=== PATIENT | female | born 1935 | race Caucasian/White ===

== ENCOUNTER 2018-02-09 09:32 | Day surgery (SDC) | payer OTHER, MEDICARE ==
[~2018-02-09] VITALS: Ht 167.6 cm; Wt 59.0 kg
[~2018-02-09 09:32] MED LIST: ARTIFICIAL TEA3.5 G1 BOTH EYES; BENADRYL ALLERG25 MG PO; CALCIUM ACETAT667 MG PO; CLARITIN10 MG PO; COLACE100 MG PO; COMBIGAN O20 DROP/5 LEFT EYE; ERYTHROMYC1 APPLICAT BOTH EYES; FISH OIL 1,2001 EAC4 PO; FOSAMAX70 MG PO; FUROSEMIDE20 MG PO; GLUCOTROL XL2.5 MG PO; HUMALOG100 UNIT/2 SC; LASIX40 MG PO; LOVASTATIN40 MG PO; LUMIGAN 0.50 DROP/22 BOTH EYES; MIRALAX17 GM PO; NABI650T PO; PROAMATINE5 MG PO; RENVELA800 MG PO; SENNA LAXATIVE25 MG PO; SIMBRINZA 1%-0.28 ML RIGHT EYE; SYSTANE BALANCE10 ML BOTH EYES; TYLENOL ARTHRI650 MG PO; VITAMIN B-12 51 EACH SL; VITAMIN C WIT1000 MG PO; WELCHOL625 MG PO; ZESTRIL2.5 MG PO
[2018-02-09 11:00] VITALS: BP 147/79
[2018-02-09 11:04] LABS: HEMATOCRIT 34.5 % (36.0-46.0); HEMOGLOBIN 11.1 G/DL (11.9-15.5); MCH 31.3 PG (29.0-34.0); MCHC 32.2 G/DL (30.0-36.0); MCV 97.2 FL (83-99); PLATELET COUNT 141 K/uL (156-360); RBC DIS.WIDTH-CV 13.6 % (11.8-14.6); RBC DIS.WIDTH-SD 48.6 % (39-53); RED BLOOD COUNT 3.55 M/uL (3.80-5.20); WHITE BLOOD COUNT 5.6 K/uL (4.1-10.2)
[2018-02-09 11:12] LABS: CHLORIDE 100 MEQ/L (99-109); POTASSIUM 4.7 MEQ/L (3.7-5.4); SODIUM 135 MEQ/L (136-147)
[2018-02-09 11:17] LABS: GLUCOSE 84 mg/dL (70-99)
[2018-02-09] MEDS ORDERED: NORCO 7.5/321 TABLET PO (15:17)
[2018-02-09 16:40] VITALS: BP 129/61
[2018-02-09 17:18] VITALS: BP 125/59
== END 2018-02-09 17:25 | disposition home or self-care (01) ==
LOC: SDC 09:32
PROVIDERS: Surgery
DX: I12.0 Hypertensive chronic kidney disease with stage 5 chronic kidney disease or end stage renal disease (principal); E11.22 Type 2 diabetes mellitus with diabetic chronic kidney disease; N18.6 End stage renal disease; Z99.2 Dependence on renal dialysis; Z79.4 Long term (current) use of insulin; Z91.040 Latex allergy status
CPT/HCPCS: 80051; 82947; 82948; 85027; 86850; 86870; 86900; 86901; 86905; 86920; 87641; 93005; J0690; J1644; J2720; J3010; S0020